=== PATIENT | male | born 1960 | race Two or more races ===

== ENCOUNTER → 2016-11-09 | Outpatient (CLI) | payer OTHER ==
[2016-08-01 16:10] VITALS: BP 129/80
[~2016-11-09] MED LIST: METO25TA9 PO; OMEP40CA5 PO; PARO20TA2 PO; TAMS0.4C2 PO
--- NOTE | 2016-11-10 15:21 | PATHOLOGY ---
CYTOPATHOLOGY REPORT CLINICAL HISTORY: N40.1. SPECIMEN(S) RECEIVED: A.Urine, NOS FINAL DIAGNOSIS: Urine, ThinPrep: - No malignant cells identified. - Few urothelial cells, squamous epithelial cells, and inflammatory cells identified. (JPM:csd; d/t: 11/10/2016) PATHOLOGIST: Aaron Martin M.D. REPORT ELECTRONICALLY SIGNED BY: Aaron Martin M.D. DATE/TIME: 11/10/2016 15:19 GROSS PATHOLOGY: A. Urine, NOS: The specimen is submitted unfixed, labeled "Clayton Carrero". Received by the Cytology Department is 70 mL of clear yellow fluid. One ThinPrep slide was prepared. (clt 3.) MANAGEMENT LECTURER(S): RAYMOND Zacarias(ASCP) INITIAL CPT CODE(S): A; 56562 Professional services performed by [facility] [place] [address] Technical services performed by [facility] at [address] [place] [address], [address], [place] [address]. CC: Tegan Raya APRN PATIENT: CLAYTON CARRERO /AGE: 1208/25/1960 (Age: 56) SEX: M PATIENT #: [id number] ALT CASE #: SPECIMEN COLLECTION DATE: 11/09/2016 SPECIMEN RECEIVED DATE: 11/09/2016 [facility] [address] [place] [address], [address] [place] [address] PHONE: [phone] DIRECTOR: Rafa Reese M.D. * * * END OF REPORT * * *
== END | disposition home or self-care (01) ==
LOC: LAB 09:27
PROVIDERS: ATTEND Nurse Practitioner Occupational Health
DX: N40.1 Benign prostatic hyperplasia with lower urinary tract symptoms (principal)
CPT/HCPCS: 36415; G0103

== ENCOUNTER → 2016-11-13 | Outpatient (CLI) | payer OTHER ==
[2016-08-01 16:10] VITALS: BP 129/80
[~2016-11-13] MED LIST changes: +CONTRAST GIVEN MC PRN; +IOHEXOL 300 MG/ML 75 ML VIAL IV ONE; -PARO20TA2 PO; +PARO20TA3 PO
--- NOTE | 2016-11-13 09:32 | RAD ---
EXAM: CT abdomen/pelvis with and without contrast. HISTORY: Hematuria. TECHNIQUE: Computed tomography of the abdomen and pelvis was performed before and after the intravenous administration of 75 mL Isovue-370. COMPARISON: None. FINDINGS: Lung windows through the visualized portions of the bases reveal mild atelectasis. Bone windows reveal no suspicious lesions. There are no renal or ureteral calculi. There are no solid renal lesions. There is no hydronephrosis. Urinary graft images demonstrate no tract urothelial lesions. The bladder is mostly decompressed but demonstrates trabeculation and some wall thickening. The prostate is not enlarged. Hypoattenuation of the hepatic parenchyma indicates moderate diffuse hepatic steatosis. The gallbladder is surgically absent. The pancreas, adrenal glands, and spleen are unremarkable. The appendix is surgically absent. A small umbilical hernia contains only fat. There are no pathologically enlarged lymph nodes. IMPRESSION: 1. Bladder wall thickening may reflect only luminal decompression. The prostate is not clearly enlarged for patient age. Correlate with urinalysis to exclude inflammation. 2. No solid renal lesions, clear upper tract urothelial lesions, or nephroureterolithiasis. 3. Moderate diffuse hepatic steatosis. 4. Small umbilical hernia containing only fat. *One or more of the following individualized dose reduction techniques were utilized for this examination: 1. Automated exposure control. 2. Adjustment of the mA and/or kV according to patient size. 3. Use of iterative reconstruction technique.
== END | disposition home or self-care (01) ==
LOC: CT 06:54
PROVIDERS: ATTEND Nurse Practitioner Occupational Health
DX: R31.9 Hematuria, unspecified (principal); K76.0 Fatty (change of) liver, not elsewhere classified; K42.9 Umbilical hernia without obstruction or gangrene
CPT/HCPCS: 74178; Q9967